=== PATIENT | male | born 1995 | race Native Hawaiian/Other Pacific Islander ===

== ENCOUNTER 2018-08-13 12:04 | Emergency (ER) | payer OTHER ==
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
[2018-08-13] MEDS ORDERED: CLINDAMYCIN 150 MG CAPSULE PO STA (14:40)
[2018-08-13 15:10] VITALS: BP 141/83
== END 2018-08-13 15:10 | disposition home or self-care (01) ==
LOC: ED 12:04
DX: H11.33 Conjunctival hemorrhage, bilateral (principal); S01.312A Laceration without foreign body of left ear, initial encounter; S02.82XA Fracture of other specified skull and facial bones, left side, initial encounter for closed fracture; Y04.2XXA Assault by strike against or bumped into by another person, initial encounter; F17.200 Nicotine dependence, unspecified, uncomplicated
CPT/HCPCS: 12011; 70450; 70486; 99283; A9270